=== PATIENT | male | born 1955 | race Caucasian/White ===

== ENCOUNTER 2016-12-05 12:17 | Emergency (ER) | payer OTHER ==
[2016-12-05 12:42] VITALS: BP 140/86; PULSE 68; RESP 16; TEMP 98.6; O2SAT 99
[2016-12-05] MEDS ORDERED: fentaNYL 100 MCG/2 ML INJ IVP ONE (12:45)
[2016-12-05] MEDS ORDERED: ONDANSETRON 4 MG/2 ML VIAL IVP ONE (12:45)
[2016-12-05] MEDS ORDERED: NS 1,000 ML IV ONE (12:55)
--- NOTE | 2016-12-05 12:56 | CPEKG ---
Heart Rate: 56 RR Interval: 1071 P-R Interval: 148 QRSD Interval: 90 QT Interval: 440 QTC Interval: 425 P [place]: 65 QRS [place]: 59 T Wave [place]: 55 EKG Severity - NORMAL ECG - EKG Impression: SINUS RHYTHM Electronically Signed By: Gilmar Li 06-Dec-2016 10:14:02
[2016-12-05 13:02] LABS: % IMMATURE GRANULYOCYTES 0.2 % (0.0-1.1); ABSOLUTE IMMATURE GRANULOCYTES 0.01 10^3/uL (0.00-0.10); ADD DIFF? NO; ADD MORPH? NO; ADD SCAN? NO; ATYPICAL LYMPHOCYTE FLAG 30 (0-99); FRAGMENT RBC FLAG 0 (0-99); HEMATOCRIT 48.4 % (40.0-51.0); HEMOGLOBIN 17.8 g/dL (13.7-17.5); LEFT SHIFT FLG 0 (0-99); LIPEMIA HEMOLYSIS FLAG 90 (0-99); MEAN CELL HEMOGLOBIN 32.5 pg (27.9-34.1); MEAN CELL HEMOGLOBIN CONCENTR. 36.8 g/dL (32.4-36.7); MEAN CELL VOLUME 88.3 fL (81.5-99.8); MEAN PLATELET VOLUME 9.2 fL (8.7-11.7); PLATELET CLUMPS FLAG 0 (0-99); PLATELET COUNT 324 10^3/uL (150-400); RED BLOOD CELL COUNT 5.48 10^6/uL (4.40-6.38); RED CELL DISTRIBUTION WIDTH 12.6 % (11.5-15.2)
[2016-12-05 13:13] LABS: COLOR YELLOW; LEUKOCYTE ESTERASE,URINE NEGATIVE (NEGATIVE); NITRITE,URINE NEGATIVE (NEGATIVE)
[2016-12-05 13:21] LABS: ALANINE AMINOTRANSFERASE 25 IU/L (21-72); ALKALINE PHOSPHATASE 60 IU/L (38-126); ANION GAP 18 mEq/L (8-16); ASPARTATE AMINOTRANSFERASE 22 IU/L (17-59); BILIRUBIN-CONJUGATED 0.3 mg/dL (0.0-0.5); BILIRUBIN-UNCONJUGATED 0.7 mg/dL (0.0-1.1); CALCIUM 10.4 mg/dL (8.5-10.4); CARBON DIOXIDE 19 mEq/l (22-31); CHLORIDE 104 mEq/L (97-110); CREATININE 0.8 mg/dL (0.7-1.3); GLOMERULAR FILTRATION RATE > 60; GLUCOSE 85 mg/dL (70-100); POTASSIUM 4.5 mEq/L (3.5-5.2); SODIUM 141 mEq/L (134-144); TOTAL PROTEIN 8.3 g/dL (6.3-8.2)
[2016-12-05 13:28] LABS: TROPONIN I < 0.012 ng/mL (0-0.034)
[2016-12-05] MEDS ORDERED: IOPAMIDOL (ISOVUE 370) 100 ML BTL IV ONE (13:45)
--- NOTE | 2016-12-05 15:11 | UCPHY ---
H & P Patient Type: New Chief Complaint Nursing Narrative: pt sent from Dr. Martinez's office with severe abd pain, hx of recurrent ischemic colitis, colon polyps and diffuse gastritis. last bm this am was "small and abnormal" emesis x1 "a few days ago" Time Seen by Provider: 12/05/16 12:57 HPI/ROS: CHIEF COMPLAINT: Abdominal pain History by patient HISTORY OF PRESENT ILLNESS: 61-year-old man presents complaining of severe bilateral flank radiating to his abdomen pain which has been going on for few days but became much worse last night and early this morning. He has had 1 episode of vomiting. He has had multiple episodes of watery, nonbloody diarrhea. Patient has had similar symptoms to this in the past and was been diagnosed with both ischemic and infectious colitis and had a recent colonoscopy in the past 6 months which showed evidence of scarring from recurrent colitis. Patient denies any fever or chills. He says this feels somewhat different than prior episodes because the pain is more in his flank and in the center of his abdomen. He denies any dysuria urgency frequency or hematuria. He has not taken anything for this for pain at home. Patient was seen in the clinic [place] with a noted the patient was in significant pain and diaphoretic and was transferred here for evaluation. REVIEW OF SYSTEMS: As in HPI, and all other systems reviewed and are negative Source: Patient - Personal History Current Tetanus/Diphtheria Vaccine: Yes Current Tetanus Diphtheria and Acellular Pertussis (TDAP): Yes - Medical/Surgical History Hx Asthma: No Hx Chronic Respiratory Disease: No Hx Diabetes: No Hx Cardiac Disease: Yes Hx Renal Disease: No Hx Cirrhosis: No Hx Alcoholism: No Hx HIV/AIDS: No Hx Splenectomy or Spleen Trauma: No Other PMH: CAD and NSTEMI in 2004, cyclic vomiting syndrome, ED, inguinal hernia , high chol, hypothyroid, ischemic colitis, kidney stones - Family History Significant Family History: No pertinent family hx - Social History Smoking Status: Current every day smoker - Physical Exam Exam: General Appearance: Alert, uncomfortable appearing. Eyes: Pupils equal and round no pallor or injection. ENT, Mouth: Mucous membranes moist. Respiratory: Normal, effort, There are no retractions, lungs are clear to auscultation. Cardiovascular: Regular rate and rhythm. Gastrointestinal: Abdomen is soft and nontender, no masses, bowel sounds normal. Back: Mild left CVA tenderness Neurological: Awake, alert and oriented x 3, no pronator drift, normal gait, no pronator drift Skin: Warm and dry, no rashes. Musculoskeletal: Neck is supple nontender. Extremities are symmetrical, full range of motion. Psychiatric: Patient has normal affect, there is no agitation. Constitutional: Initial Vital Signs Temperature (C) 37 C 12/05/16 12:38 Heart Rate 68 12/05/16 12:38 Respiratory Rate 16 12/05/16 12:38 Blood Pressure 140/86 H 12/05/16 12:38 O2 Sat (%) 99 12/05/16 12:38 O2 Delivery Mode Room Air Allergies/Adverse Reactions: No Known Allergies Allergy (Unverified 12/05/16 12:36) Home Medications: Medication Instructions Recorded Aspirin 12/05/16 Atorvastatin Calcium 12/05/16 Levothyroxine 12/05/16 Multivitamin 12/05/16 Pantoprazole Sodium 12/05/16 l-Carnitine 12/05/16 Medical Decision Making - Diagnostics Imaging Results: Imaging Impressions Abdomen CT 12/05/16 12:56 Impression: 1. Appendix not identified although no secondary evidence of appendicitis. 2. No nephrolithiasis or urinary tract obstruction. 3. Sigmoid diverticulosis without diverticulitis or colitis. 4. Fat-containing right inguinal hernia. 5. Atherosclerotic aorta without aneurysm. 6. Small bowel and colon limited due to lack of oral contrast. Consider additional imaging or colonoscopy, as clinically indicated. Imaging: Discussed imaging studies w/ call center nurse Radiologist ED Course/Re-evaluation: 61-year-old man with a history of prior episodes of ischemic and/or infectious colitis presents with symptoms similar to prior episodes. Patient was given IV fluids, fentanyl and Zofran with symptomatic improvement although he continued to have episodic pain. He declined further doses of pain medicine. Labs are notable for with normal white blood cell count had a slightly elevated hemoglobin suggesting dehydration. Chemistries were notable for low bicarb an elevated anion gap. CT scan of the abdomen and pelvis was obtained which showed some dilated fluid-filled loops of bowel suggestive of some enteritis. No evidence of ischemic bowel. Per the radiologist all blood vessels were patent. On re-evaluation the patient continued to be uncomfortable. Given his prior history and elevated anion gap, and the inability of CT to completely rule out ischemic bowel, at this point I think it is prudent to observe the patient overnight. He prefers to be transferred to [facility] where he has been admitted several times previously for similar symptoms. I discussed the case with Dr. Khan who accepts the patient in transfer. - Data Points Laboratory Results: Laboratory Results 12/05/16 12:41 12/05/16 12:41 12/05/16 12/05/16 12/05/16 13:05 12:41 12:41 WBC 6.51 10^3/uL 10^3/uL (3.80-9.50) RBC 5.48 10^6/uL 10^6/uL (4.40-6.38) Hgb 17.8 g/dL H g/dL (13.7-17.5) Hct 48.4 % % (40.0-51.0) MCV 88.3 fL fL (81.5-99.8) MCH 32.5 pg pg (27.9-34.1) MCHC 36.8 g/dL H g/dL (32.4-36.7) RDW 12.6 % % (11.5-15.2) Plt Count 324 10^3/uL 10^3/uL (150-400) MPV 9.2 fL fL (8.7-11.7) Neut % (Auto) 56.7 % % (39.3-74.2) Lymph % (Auto) 28.4 % % (15.0-45.0) [place] % (Auto) 12.9 % % (4.5-13.0) Eos % (Auto) 0.9 % % (0.6-7.6) Baso % (Auto) 0.9 % % (0.3-1.7) Nucleat RBC Rel Count 0.0 % % (0.0-0.2) Absolute Neuts (auto) 3.69 10^3/uL 10^3/uL (1.70-6.50) Absolute Lymphs (auto) 1.85 10^3/uL 10^3/uL (1.00-3.00) Absolute Monos (auto) 0.84 10^3/uL H 10^3/uL (0.30-0.80) Absolute Eos (auto) 0.06 10^3/uL 10^3/uL (0.03-0.40) Absolute Basos (auto) 0.06 10^3/uL 10^3/uL (0.02-0.10) Absolute Nucleated RBC 0.00 10^3/uL 10^3/uL (0-0.01) Immature Gran % 0.2 % % (0.0-1.1) Immature Gran # 0.01 10^3/uL 10^3/uL (0.00-0.10) Sodium 141 mEq/L mEq/L (134-144) Potassium 4.5 mEq/L mEq/L (3.5-5.2) Chloride 104 mEq/L mEq/L (97-110) Carbon Dioxide 19 mEq/l L mEq/l (22-31) Anion Gap 18 mEq/L H mEq/L (8-16) BUN 15 mg/dL mg/dL (7-23) Creatinine 0.8 mg/dL mg/dL (0.7-1.3) Estimated GFR > 60 Glucose 85 mg/dL mg/dL (70-100) Calcium 10.4 mg/dL mg/dL (8.5-10.4) Total Bilirubin 1.0 mg/dL mg/dL (0.1-1.4) Conjugated Bilirubin 0.3 mg/dL mg/dL (0.0-0.5) Unconjugated Bilirubin 0.7 mg/dL mg/dL (0.0-1.1) AST 22 IU/L IU/L (17-59) ALT 25 IU/L IU/L (21-72) Alkaline Phosphatase 60 IU/L IU/L (38-126) Troponin I < 0.012 ng/mL ng/mL (0-0.034) Total Protein 8.3 g/dL H g/dL (6.3-8.2) Albumin 5.0 g/dL g/dL (3.5-5.0) Lipase 179.0 IU/L IU/L (23-300) Urine Color YELLOW Urine Appearance CLEAR Urine pH 6.0 (5.0-7.5) Ur Specific [place] 1.015 (1.002-1.030) Urine Protein NEGATIVE (NEGATIVE) Urine Ketones NEGATIVE (NEGATIVE) Urine Blood NEGATIVE (NEGATIVE) Urine Nitrate NEGATIVE (NEGATIVE) Urine Bilirubin NEGATIVE (NEGATIVE) Urine Urobilinogen 0.2 EU EU (0.2-1.0) Ur Leukocyte Esterase NEGATIVE (NEGATIVE) Ur Culture Indicated? NOT INDICATED (NI) Urine Glucose NEGATIVE (NEGATIVE) Medications Given: Discontinued Medications Fentanyl (Sublimaze) 50 mcg IVP EDNOW ONE Stop: 12/05/16 12:46 Last Admin: 12/05/16 13:19 Dose: 50 mcg Sodium Chloride (Ns) 1,000 mls @ 0 mls/hr IV ONCE ONE PRN Reason: Wide Open Stop: 12/05/16 12:56 Last Admin: 12/05/16 13:19 Dose: 1,000 mls Ondansetron HCl (Zofran) 4 mg IVP EDNOW ONE Stop: 12/05/16 12:46 Last Admin: 12/05/16 13:19 Dose: 4 mg Departure - Departure Disposition: Acute Care Hospital [facility] Clinical Impression: Abdominal pain in male, High anion gap metabolic acidosis, Diarrhea in adult patient Condition: Fair Referrals: Carol Martinez DO [Primary Care Provider] - As per Instructions - PQRS PQRS Measurement: NA
== END 2016-12-05 17:20 | disposition short-term general hospital (02) ==
LOC: CED 12:17
DX: R10.9 Unspecified abdominal pain (principal); E87.2 Acidosis; R19.7 Diarrhea, unspecified
CPT/HCPCS: 74177-PO; 80048-PO; 80076-PO; 81003-PO; 83690-PO; 84484-PO; 85025-PO; 96361-PO; 96374-PO; 96375-PO; 99205-PO; G0463-PO; J2405; J3010; Q9967